=== PATIENT | female | born 1930 | race Caucasian/White ===

== ENCOUNTER 2019-05-06 06:51 | Inpatient (IN) ==
--- NOTE | 2019-05-06 07:15 | PROVIDER DOCUMENTATION ---
HPI-Musculoskeletal Pain/Inj - GENERAL Chief Complaint: Fall Stated Complaint: fall/dizzy Time Seen by Provider: 05/06/19 07:05 Source: patient - HX OF PRESENT ILLNESS-MUSKULOSKELTAL Quality of Pain: reports: aching, sharp Severity in ED: severe Onset/Duration: just prior to arrival Timing: still present Modifying Factors: improves with: movement Any recent injury?: Yes Locality of Occurance: Home Similar Symptoms Previously?: Yes (has fallen in the past) Recently seen or treated by another doctor?: No - FALL INJURY Location of Pain/Injury: reports: lower extremity (right hip) Pain Radiation: reports: no radiation Reason for Fall: reports: lost balance Symptoms prior to fall:: reports: none Injury Associated Symptoms: reports: denies symptoms - HIP/PELVIS PAIN/INJURY Hip Pain Location: reports: hip (R) Pain Radiation: reports: no radiation Context / Method of Injury: reports: fall Review of Systems - Adult - REVIEW OF SYSTEMS - ADULT Constitutional: reports: no symptoms reported Eyes: reports: no symptoms reported Ears, Nose, Mouth & Throat: reports: no symptoms reported Cardiovascular: reports: no symptoms reported Respiratory: reports: no symptoms reported Gastrointestinal: reports: no symptoms reported Genitourinary: reports: no symptoms reported Musculoskeletal: reports: see HPI Integumentary: reports: no symptoms reported Neurological: reports: no symptoms reported Psychiatric: reports: no symptoms reported Endocrine: reports: no symptoms reported Past History - Adult - PAST MEDICAL HISTORY-ADULT Review of Records: reports: Old Records Reviewed, Nursing Assessment Review Physical Exam-Injury Related - Physical Exam-Injury Related Initial Vital Signs Reviewed: Yes General Appearance: appears well, alert, no apparent distress Eyes: PERRL/EOMI, pink conjunctivae Head, Ears, Nose, Mouth & Throat: normocephalic/atraumatic, moist mucous membranes, normal ENT inspection, TMs normal, pharynx normal Neck: non-tender, full range of motion, supple, normal inspection Respiratory: chest non-tender, lungs clear, normal breath sounds, no pleuratic chest pain Cardiovascular: normal peripheral pulses, regular rate, rhythm, no edema, no gallop, no JVD, no murmur Chest/Breast: deferred Peripheral Pulses: dorsalis-pedis (R): 2+, dorsalis-pedis (L): 2+ Abdominal Exam: normal bowel sounds, non tender, soft, no organomegaly, no pulsatile mass Female Genitalia/Pelvic Exam: deferred Rectal Exam: deferred Back Exam: normal inspection, no CVA tenderness, no vertebral tenderness Extremity: pelvis stable Integumentary: normal color, warm/dry Neurologic: employee communications coordinator II-XII nml as tested - Glascow Coma Score Best Eye Response ([place]): (4) open spontaneously Best Verbal Response ([place]): (5) oriented Best Motor Response ([place]): (6) obeys commands [place] Total: 15 Progress - PLAN OF CARE/RESULTS Progress/Plan/Lab Results: Vital Signs - 8 hr 05/06/19 07:02 Temperature 98.9 F Pulse Rate 64 Respiratory Rate 18 Blood Pressure 177/98 O2 Sat by Pulse Oximetry 90 L Orders Category Date Time Status CHEST-1 VIEW [RAD] Stat Exams 05/06/19 08:25 Ordered FEMUR 1 VIEW RIGHT [RAD] Stat Exams 05/06/19 07:14 Completed XRAY HIP UNILATERAL RT [RAD] Stat Exams 05/06/19 07:50 Completed CBC WITH ELECTRONIC DIFF [HEME] Stat Lab 05/06/19 08:37 Ordered CK PROFILE [SP CHEM] Stat Lab 05/06/19 08:14 Ordered COMPREHENSIVE METABOLIC PANEL [CHEM] Stat Lab 05/06/19 08:14 Ordered Hydromorphone [Dilaudid] Med 05/06/19 07:56 Discontinued 1 mg IM NOW ONE Ondansetron [Zofran] Med 05/06/19 08:38 Discontinued 4 mg .ROUTE .STK-MED ONE EKG [EKG] Stat Ther 05/06/19 08:14 Ordered - EKG 1 Time of EKG reading by physician:: 08:34 EKG Read and Signed by:: Mumtaz Somers EKG Interpretation (*Must complete 3 of following elements*): Abnormal Rate: 53 Rhythm: junctional [place]: normal QRS: poor R wave progression (poss old septal infarct) ST Wave: normal - CONSULTS/PCP/HOSPITALIST Notification #1 *Consult/PCP/Hospitalist*: Dr. Reeves, Orthopedics Time Discussed: 08:22 (Admit to Hospitalist) #2 Consult: Rosangela Time Discussed: 08:33 (Admit to Dr Street) Departure - Departure Date of Disposition Decision: 05/06/19 Time of Disposition Decision: 08:39 DIAGNOSIS: Hip fracture, right Disposition: ADMITTED INPATIENT 09 Certified Medical Emergency: Emergent Condition: Stable Referrals and Follow-Ups: Mica Moreno CRNP [Primary Care Provider] - - Critical Care Note This patient required my direct & personal management of CC.: No Attestation - Physician/ ATIF Attestation Patient care was provided by Advanced Practice Provider:: No The physician spent face to face time with patient:: Yes Advanced Practice Provider documentation review:: Supervising physician onsite and consulted in the evaluation and care of this patient. The physician did have a face to face encounter with the patient.
[2019-05-06] MEDS ORDERED: DILAUDID IM ONE (07:56)
--- NOTE | 2019-05-06 07:59 | Diag Imaging Result Doc PS360 ---
EXAM: FEMUR 1 VIEW RIGHT 05/06/2019 HISTORY: fall/ hip pain TECHNIQUE: Two views COMMENT: There is a fracture of the femoral neck. There are lucencies in the femoral head which may be due to subchondral cysts. There is osteophyte formation laterally. There is degenerative change in the knee with joint space narrowing. IMPRESSION: Fracture of the femoral neck. Osteoarthritis. Electronically signed by Ken Uribe 05/06/2019 7:57 AM
--- NOTE | 2019-05-06 08:09 | Diag Imaging Result Doc PS360 ---
EXAM: XRAY HIP UNILATERAL RT 05/06/2019 HISTORY: hip pain TECHNIQUE: Right hip two views COMMENT: There is a subcapital femoral neck fracture as previously described. There are degenerative changes in the femoral head and lateral acetabulum. IMPRESSION: Femoral neck fracture. Osteoarthritis. Electronically signed by Ken Uribe 05/06/2019 8:06 AM
[2019-05-06] MEDS ORDERED: ZOFRAN ONE (08:38)
--- NOTE | 2019-05-06 08:49 | Diag Imaging Result Doc PS360 ---
EXAM: CHEST-1 VIEW 05/06/2019 HISTORY: hip fracture TECHNIQUE: AP portable semierect COMMENT: There is some obscuration of the left heart border laterally as well as the costophrenic angle. There are no previous studies. There has been sternotomy and anterior mediastinal surgical clips are present. IMPRESSION: Atelectasis versus fibrosis in the left costophrenic angle region. Postsurgical changes. Electronically signed by Ken Uribe 05/06/2019 8:47 AM
[2019-05-06 08:54] LABS: BASO# 0.01 X1000 (0.0-0.2); BASO% 0.1 % (0.0-0.8); EOS# 0.04 X1000 (0.0-0.7); EOS% 0.4 % (0.0-10.0); HEMATOCRIT 39.9 % (37.0-47.0); HEMOGLOBIN 13.4 g/dL (12.0-16.0); IMM GRAN# 0.02 X1000 (0.0-0.04); IMM GRAN% 0.2 % (0.0-0.5); LYMPH# 1.53 X1000 (1.2-3.4); LYMPH% 16.1 % (20.5-51.1); MCH 31.2 PG (27-31); MCHC 33.6 g/dL (33-37); MONO# 1.08 X1000 (0.11-0.59); MONO% 11.3 % (1.7-9.3); MPV 9.9 FL (7.4-10.4); NEUT# 6.85 X1000 (1.4-6.5); NEUT% 71.9 % (42.2-75.2); PLT 232 X1000 (130-400); RBC 4.29 XMIL (4.2-5.4); RDW 13.6 % (11.5-14.5); WBC 9.53 X1000 (4.8-10.8)
[2019-05-06 09:20] LABS: AGAP 13; ALB/GLOB RATIO 1.3; ALBUMIN 4.2 g/dL (3.5-5.0); ALKALINE PHOSPHATASE 39 U/L (32-104); BUN 13 mg/dL (8-22); CALCIUM 10.1 mg/dL (8.8-10.2); CHLORIDE 99 mmol/L (98-107); CK PROFILE 27 U/L (24-173); COSMO 283; CREATININE 0.5 mg/dL (0.5-0.9); ESTIMATED GFR > 60; GLUCOSE 188 mg/dL (70-104); GOT 17 U/L (10-30); GPT 13 U/L (10-36); POTASSIUM 4.1 mmol/L (3.5-5.1); SODIUM 139 mmol/L (136-145); TCO2 27 mmol/L (25-35); TOTAL BILIRUBIN 0.38 mg/dL (0.20-1.00); TOTAL PROTEIN 7.5 g/dL (6.3-8.3)
--- NOTE | 2019-05-06 09:25 | HISTORY AND PHYSICAL ---
PRIMARY CARE PROVIDER: DAWIT Rodney CHIEF COMPLAINT: I fell. HISTORY OF PRESENT ILLNESS: Ms. Rabago is an 88-year-old female who carries a past medical history of coronary artery disease status post CABG, hypertension, hyperlipidemia, thyroidectomy, diabetes mellitus orally controlled, right breast cancer status post right mastectomy, incontinence, kidney stones, and dry eyes. Also reports dizziness that has been ongoing for a long time that she does not take any medication for. She reports around 4 or 5 this morning in she got up, felt dizzy, lost her balance and fell. Her was unable to get her off the floor. EMS was called. She was unable to bear weight on her right side. Imaging in the ED revealed a right femoral neck fracture and osteoarthritis. She had low normal O2 with sat of 90. She was placed on supplemental O2. Laboratory data and chest x-ray are currently pending. We will admit her. Dr. Collado is aware. PAST MEDICAL HISTORY: 1. Dizziness. 2. Coronary artery disease. 3. Hyperlipidemia. 4. Hypertension. 5. Hypothyroidism. 6. Diabetes mellitus type 2. 7. Right breast cancer. 8. Bladder incontinence. 9. Kidney stones. 10. Dry eyes. PAST SURGICAL HISTORY: 1. Thyroidectomy with Iodine. 2. Right mastectomy. 3. Coronary artery bypass grafting. REVIEW OF SYSTEMS: Twelve-point review of systems complete and negative except for those mentioned in HPI. Denies any fever, chills, cough, headache, nausea, vomiting, diarrhea. No syncopal episode. The patient has a history of dizziness that has been ongoing for several years. SOCIAL HISTORY: She moved from [place] with her . They have only been here a few months. They have a daughter that lives in [place]. She is an ex-smoker, but quit in 1965. No alcohol or illicit drug use. FAMILY HISTORY: Noncontributory LABORATORY DATA/DIAGNOSTICS: Currently pending. Chest x-ray pending. Hip and femur x-ray on the right shows a right femoral neck fracture and osteoarthritis. ALLERGIES: Penicillin. HOME MEDICATIONS: Have not been verified. PHYSICAL EXAMINATION: VITAL SIGNS: Temperature is 98.9 degrees, heart rate 64, respirations 18, blood pressure is 177/98. Initial O2 saturation on room air was 90. She is now up to 96 on 2 L. GENERAL: Ms. Rabago is a pleasant 88-year-old female who is lying on the stretcher in no acute distress. Just received IM Dilaudid and was feeling a little loopy, but she was alert, oriented, and appropriate. Answered all questions. HEENT: Atraumatic, normocephalic. PERRL. NECK: Supple, trachea midline. CARDIOVASCULAR: S1, S2 appreciated. No murmurs, gallops, rubs noted. RESPIRATORY: Lung sounds clear bilaterally. GASTROINTESTINAL: Soft, nontender, nondistended. Positive bowel sounds 4 quads. EXTREMITIES: Negative for edema. Bilateral pedal pulses are pounding. No signs of clubbing or cyanosis. NEUROLOGIC: No focal deficits noted. ASSESSMENT AND PLAN: 1. Status post mechanical fall with a right femoral neck fracture. The patient will be admitted. Dr. Collado has been consulted. We will continue with pain regimen and await orthopedics recommendations. 3. Coronary artery disease status post coronary artery bypass grafting. No chest pain. 4. Hypertension. 5. Hyperlipidemia. 6. Hypothyroidism, status post thyroidectomy. 7. Diabetes mellitus. Will place on sliding scale and pattern blood sugars. 8. Right breast cancer status post right mastectomy. 9. Incontinence. 10. Kidney stones. 11. Further recommendation to follow physician evaluation, laboratory and diagnostic data. Dictated by DAWIT Dalton for Karthikeyan Street MD cc: Chavo Collado MD Agree with the above. the following is my own face to face assessment. heart: RRR. lungs: CTAB. monitor and await likely surgical repair of right femur fracture. [facility]
[2019-05-06] MEDS ORDERED: ZOFRAN IV PRN (10:26)
[2019-05-06] MEDS ORDERED: TYLENOL PO PRN (10:26)
[2019-05-06 12:29] LABS: BILIRUBIN URINE NEGATIVE (NEGATIVE); BLOOD URINE NEGATIVE (NEGATIVE); COLOR YELLOW; GLUCOSE URINE NEGATIVE (NEGATIVE); KETONE URINE NEGATIVE (NEGATIVE); LEUKOCYTES URINE LARGE (NEGATIVE); NITRITE URINE POSITIVE (NEGATIVE); PROTEIN URINE TRACE mg/dL (NEGATIVE); SP GRAVITY URINE 1.009; TURBIDITY URINE HAZY (CLEAR); UR EPITHELIAL CELLS <10 /HPF (<10); URINE BACTERIA 4+ /HPF; URINE RBC <10 /HPF (<10); URINE WBC TNTC /HPF (<10); UROBILINOGEN URINE NORMAL (NORMAL)
[2019-05-06 12:30] LABS: URINE SOURCE CLEAN CATCH
[2019-05-06] MEDS: NS 1,000 ML IV SCH (12:57)
[2019-05-06] MEDS: HUMALOG SUBQ SCH ×3 (13:03→21:08)
--- NOTE | 2019-05-06 13:56 | ORTHOPAEDICS CONSULTATION ---
DATE: 05/06/2019 CHIEF COMPLAINT: Fall. HISTORY OF PRESENT ILLNESS: Ms. Rabago is an 88-year-old female who presented to the hospital for right hip pain. She fell at home today. She says she got a little bit dizzy and lost her balance and fell. She had pain on the right hip and was unable to stand up or bear weight. EMS was called and brought her to the ER. She was found to have a hip fracture and orthopedics was consulted. PAST MEDICAL HISTORY: Coronary artery disease, hypertension, type 2 diabetes, breast cancer, kidney stones, bladder incontinence, hypothyroidism, hyperlipidemia. PAST SURGICAL HISTORY: Thyroidectomy with iodine, a right mastectomy, and coronary artery bypass grafting. SOCIAL HISTORY: She denies any alcohol use or tobacco use at this point. ALLERGIES: Penicillin. HOME MEDICATIONS: Per medical record. REVIEW OF SYSTEMS: Positive for right hip pain. All other systems are essentially negative. PHYSICAL EXAMINATION: General: A well-developed, elderly female who is in no acute distress. She is lying in bed. Head and Neck: Normocephalic, atraumatic. Respirations: She has nonlabored breathing. Cardiovascular: Regular pulse. Abdomen: Nondistended. Right Lower Extremity Examination: She has tenderness to palpation at the hip. Leg lengths look about equal. There are 2+ DP pulses. Good sensation to light touch to the toes. No skin ulcerations or abrasions seen. No tenderness to palpation of the left lower extremity or bilateral upper extremities. RADIOGRAPHS: Several views of the right hip and right femur were reviewed, which shows a femoral neck fracture with just a little bit of displacement. ASSESSMENT: Right displaced femoral neck fracture. PLAN: I discussed with Ms. Rabago about her x-rays. I also discussed with her about my recommendation for surgical intervention. I would recommend a right hip hemiarthroplasty at this point. I went over with her the procedure, risks, benefits, and potential complications. Risks include, but are not limited to infection, wound healing problems, damage to nerves, arteries, veins, numbness, malunion, numbness, hip dislocation, and fracture, DVT, and anesthesia related risks. After discussing these with the patient, she expressed understanding and wished to proceed. We will plan on getting everything set up for tomorrow. She is n.p.o. after midnight tonight. She may end up needing cardiology clearance given her history of heart conditions. cc: Chavo Collado MD
--- NOTE | 2019-05-06 14:25 | EKG Report ---
Test Performed on : 05/06/2019 08:32:39 AM Test Reason : hip fracture Blood Pressure : / mmHG Vent. Rate : 053 BPM Atrial Rate : 056 BPM P-R Int : 000 ms QRS Dur : 086 ms QT Int : 496 ms P-R-T Axes : 000 017 061 degrees QTc Int : 465 ms Junctional rhythm. Septal infarct , age undetermined Abnormal ECG No previous ECGs available Unconfirmed Result
[2019-05-06] MEDS: MORPHINE IV PRN ×2 (15:06→21:08)
[2019-05-07 06:36] LABS: BASO# 0.01 X1000 (0.0-0.2); BASO% 0.2 % (0.0-0.8); EOS# 0.18 X1000 (0.0-0.7); HEMATOCRIT 36.8 % (37.0-47.0); LYMPH# 1.19 X1000 (1.2-3.4); LYMPH% 19.7 % (20.5-51.1); MCH 31.3 PG (27-31); MCHC 32.6 g/dL (33-37); MCV 96.1 FL (81-99); MONO# 0.83 X1000 (0.11-0.59); MONO% 13.8 % (1.7-9.3); MPV 9.7 FL (7.4-10.4); NEUT# 3.82 X1000 (1.4-6.5); NEUT% 63.3 % (42.2-75.2); PLT 191 X1000 (130-400); RBC 3.83 XMIL (4.2-5.4); RDW 13.9 % (11.5-14.5); WBC 6.03 X1000 (4.8-10.8)
[2019-05-07 06:49] LABS: AGAP 10; BUN 15 mg/dL (8-22); CALCIUM 9.2 mg/dL (8.8-10.2); CHLORIDE 102 mmol/L (98-107); COSMO 281; CREATININE 0.7 mg/dL (0.5-0.9); ESTIMATED GFR > 60; GLUCOSE 140 mg/dL (70-104); MAGNESIUM 1.5 mg/dL (1.5-2.7); POTASSIUM 4.5 mmol/L (3.5-5.1); SODIUM 139 mmol/L (136-145); TCO2 27 mmol/L (25-35)
[2019-05-07 06:50] LABS: HEMOGLOBIN A1C 6.5 % (4.8-6.0)
[2019-05-07] MEDS: HUMALOG SUBQ SCH ×4 (07:01→22:15)
[2019-05-07] MEDS: MORPHINE IV PRN ×3 (07:26→22:36)
[2019-05-07] MEDS ORDERED: DIPRIVAN 1% ONE (09:04)
[2019-05-07] MEDS ORDERED: FENTANYL ONE (09:04)
[2019-05-07] MEDS ORDERED: XYLOCAINE-MPF 2% ONE (09:06)
[2019-05-07] MEDS: ROCEPHIN 1 GM in NS 50 ML IV SCH (09:55)
[2019-05-07] MEDS ORDERED: VERSED ONE (10:06)
[2019-05-07] MEDS ORDERED: EPHEDRINE ONE (10:08)
[2019-05-07] MEDS: NS 1,000 ML IV SCH (11:53)
[2019-05-07] MEDS: OXY IR PO PRN ×2 (12:32→19:02)
--- NOTE | 2019-05-07 13:32 | Diag Imaging Result Doc PS360 ---
EXAM: PELVIS INDICATION: s/p hip zoe TECHNIQUE: One view COMPARISON: 05/06/2019 FINDINGS: There has been a recent right hip arthroplasty. The arthroplasty hardware is in the expected position. There is no evidence of periprosthetic fracture. Skin amy are noted lateral to the right hip. IMPRESSION: Satisfactory postoperative hip. Electronically signed by Shane Magallon 05/07/2019 1:30 PM
--- NOTE | 2019-05-07 13:48 | OPERATIVE NOTE ---
PROCEDURE DATE: 05/07/2019 PREOPERATIVE DIAGNOSIS: Right femoral neck fracture. POSTOPERATIVE DIAGNOSIS: Right femoral neck fracture. PROCEDURE: Right hip hemiarthroplasty. SURGEON: Dr. Chavo Collado. MIDDLE SCHOOL PRINCIPAL: DAWIT Ruiz, who was integral to the case. She helped retract and exposed the whole time and she helped increase our OR efficiency greatly. ANESTHESIA: Spinal and light sedation. ESTIMATED BLOOD LOSS: About 100 mL. IMPLANTS: DePuy Corail stem size 10 and a 47 head. DISPOSITION: To PACU, hemodynamically stable. INDICATION FOR PROCEDURE: Ms. Rabago is an 88-year-old female who fell yesterday and fractured her right hip. She was admitted per the Hospitalist Service and cleared for surgical intervention. I discussed with her about operative intervention. She expressed understanding and wished to proceed. DESCRIPTION OF PROCEDURE: Ms. Rabago was identified in the preop holding area. The right hip was marked as correct surgical site. She was then wheeled to the operating room, kept supine on her own bed. She was then induced under spinal anesthesia. She was then moved to the OR table placed in the left lateral decubitus position. All bony prominences were checked and well padded. Right lower extremity then prepped with chlorhexidine, gluconate scrub and then ChloraPrep, and draped in normal sterile fashion. Surgical pause was performed. We identified the correct patient, correct side, and the correct procedure. Preop antibiotics were given. I started with a standard posterior approach to the hip. Dissection was carried down through the deep fascia to short external rotators. We tagged the piriformis for repair later. I then T'd the capsule and exposed the femoral neck fracture. I then made my cut on the neck and then removed the head. I got any bone fragments out of the acetabulum at that time. We irrigated everything copiously with normal saline. We then broached all the way up to a size 10 and the size 10 actually fit really well on her. We also trialed a 47 head and that actually fit well. We took it through a range of motion and she was extremely stable. At this point, we took out all the trial components, irrigated everything copiously with normal saline. I then put the regular components in, reduced her. Stability was great. I could flex rub, internally rotate her and she did not dislocate at all. I then repaired the capsule back repaired the piriformis and then 0 Vicryl for the deep layer, 2-0 Vicryl for the subcutaneous and amy on the skin. Adaptic, 4 x 4s,, island dressing was applied. She was awakened from light sedation, moved to her own bed and taken to the PACU in stable condition. PLAN: Postop she will be weight bear as tolerated right lower extremity. I will see her in the morning. cc: Chavo Collado MD
[2019-05-07] MEDS: KEFZOL 1 GM/D5W 1 GM/50 ML IVPB IV SCH ×2 (13:49→22:16)
--- NOTE | 2019-05-07 15:28 | PROGRESS NOTE ---
DATE: 05/07/2019 INTERVAL HISTORY: The patient is status post surgical repair of right femur fracture. Some pain postop, but reasonably controlled. No other complaints. No acute events overnight. LABORATORY: WBC 6.0, hemoglobin 12, hematocrit 36.8, and platelets 191,000. Glucose 119-202. A1c 6.5. TSH 1.0. Urinalysis with nitrite positive, large leukocytes too numerous to count WBCs. Urine culture gram-negative gabriela. Previous urine culture with Klebsiella resistant only to Macrobid and ampicillin. VITAL SIGNS: T-max 99, pulse 83, respirations 16, and blood pressure 151/59. O2 saturation 96% on 3 L by nasal cannula. PHYSICAL EXAMINATION: General: No acute distress. Vitals: As above. HEENT: Normocephalic, atraumatic. Moist mucous membranes. No cervical adenopathy. Cardiovascular: Regular rate and rhythm. No murmurs, rubs, or gallops. Pulmonary: Clear to auscultation bilaterally. No wheezing, rales, or rhonchi. Abdomen: Soft, nontender, and nondistended. Bowel sounds positive. Extremities: Peripheral pulses intact. No clubbing or cyanosis. Trace right lower edema. Right hip incision is bandaged. Neurologic: Cranial nerves grossly intact. No focal deficits identified. Psychiatric: Normal mood and affect. Awake, alert, and oriented x3. Skin: No new rashes or lesions identified. ASSESSMENT AND PLAN: 1. Right closed femoral neck fracture. Status post surgical repair by Dr. Collado who is following and managing. Likely, discharge to rehab versus home health on Tuesday. 2. CAD with previous CABG 9 to 10 years ago. No chest pain, dyspnea, or other symptoms. Restart aspirin once cleared by Orthopedics likely tomorrow. 3. Diabetes mellitus acceptable control on current regimen. A1c 6.5. Continue to monitor. 4. History of right breast cancer. No active cancer per patient. 5. Hypertension. Mild to moderate elevations. The patient is immediately postop. We will keep her off her medications today, but if blood pressure remains elevated. If the patient experiences no hypotension and kidney function remains stable, then we will likely restart some of her home medications in the morning. 6. Situational depression. Continue home Celexa. 7. Likely UTI. Patient with urinalysis strongly suggestive of UTI. Urine culture growing gram- negative rods. Previous urine culture with Klebsiella resistant only to ampicillin and Macrobid. We will start Rocephin and plan on a 5 day course pending sensitivities.
[2019-05-07] MEDS: PERIDEX MT SCH (22:15)
[2019-05-08] MEDS: OXY IR PO PRN ×4 (02:35→22:55)
[2019-05-08] MEDS: NS 1,000 ML IV SCH (02:35)
[2019-05-08] MEDS: KEFZOL 1 GM/D5W 1 GM/50 ML IVPB IV SCH (05:55)
[2019-05-08 06:08] LABS: HEMATOCRIT 32.3 % (37.0-47.0); HEMOGLOBIN 10.4 g/dL (12.0-16.0)
[2019-05-08] MEDS: MORPHINE IV PRN (06:29)
[2019-05-08] MEDS: HUMALOG SUBQ SCH ×4 (06:32→22:57)
[2019-05-08 06:36] LABS: AGAP 11; BUN 7 mg/dL (8-22); CALCIUM 8.9 mg/dL (8.8-10.2); CHLORIDE 100 mmol/L (98-107); COSMO 277; CREATININE 0.5 mg/dL (0.5-0.9); ESTIMATED GFR > 60; GLUCOSE 156 mg/dL (70-104); POTASSIUM 3.8 mmol/L (3.5-5.1); SODIUM 138 mmol/L (136-145); TCO2 27 mmol/L (25-35)
[2019-05-08] MEDS: ROCEPHIN 1 GM in NS 50 ML IV SCH (10:36)
[2019-05-08] MEDS: PERIDEX MT SCH ×2 (10:36→22:56)
--- NOTE | 2019-05-08 12:22 | ORTHOPAEDICS PROGRESS NOTE ---
DATE: 05/08/2019 SUBJECTIVE DATA: Ms. Rabago is lying comfortably in bed. She states she does feel some better. The hip is still giving her some pain. OBJECTIVE DATA: Right Lower Extremity Exam: Her incision is clean, dry, and intact. It is well approximated. There is no erythema or drainage. She has good sensation in the lower limb, is a little bit weak on that side. She is able to activate the quadriceps muscles. ASSESSMENT: Status post right hip hemiarthroplasty. PLAN: We do want Ms. Rabago getting up on this hip today. We want her working with physical therapy, being full weightbearing. I do want her out of bed for all meals. She will likely need a rehab placement. We will continue to follow her during her hospital stay. Dictated by DAWIT Ruiz for Chavo Collado MD cc: DAWIT Ruiz MD
--- NOTE | 2019-05-08 15:59 | PROGRESS NOTE ---
DATE: 05/08/2019 INTERVAL HISTORY: No acute events. The patient has been hypertensive, for which her antihypertensive medication has been started. The patient's is at bedside. She needed a good amount of support with physical therapy. She denies any chest pain, shortness of breath. She has not had any bowel movements. Her appetite is good. VITALS: Temperature 98.6 degrees, pulse 98, respiratory rate 16, blood pressure 175/60. She is saturating 98% on 3 L nasal cannula. PHYSICAL EXAMINATION: General: Does not appear in any acute distress. HEENT: Oral cavity is moist. Lungs: Air entry bilaterally equal. No wheeze, rhonchi, crackles. Cardiovascular: S1, S2 normal. No murmur, rub, or gallop. Abdomen: Distended, soft, nontender. Extremity: She does not have any lower extremity edema. She has adductor block between 2 legs and urine catheter. She has tenderness on the right hip joint flexion extension. No tenderness on the left side. LABS: Suggestive of hemoglobin of 10.4. Her electrolytes are within normal limits. Urine culture had Klebsiella pneumoniae, which is sensitive to cefazolin. ASSESSMENT AND PLAN: 1. Mechanical fall leading to closed right femoral neck fracture, status post right hip hemiarthroplasty on 05/07/2019. Continue pain management with oxycodone and morphine. Start the patient on MiraLAX to avoid constipation. Continue weightbearing as tolerated as per Orthopedic Surgery recommendation. She lives with her and would benefit from going to the rehab. Social Work Rehab consult has been placed. 2. Essential hypertension. Resume her home amlodipine and metoprolol. I will add losartan as tolerated. 3. Klebsiella pneumoniae urinary tract infection. Continue intravenous ceftriaxone, which I will change to oral Keflex for about 5 days of treatment. 4. Disposition. Social Work Rehab consult has been placed. Plan of care discussed with the patient and her at bedside. 5. History of coronary artery disease status post CABG 10 years ago. Resume home aspirin. cc: Kike Owen MD
[2019-05-08] MEDS: TUMS PO SCH ×2 (16:43→22:55)
[2019-05-08] MEDS: GLUCOPHAGE XR PO SCH (16:43)
[2019-05-08] MEDS: MIRALAX PO SCH (16:59)
[2019-05-08] MEDS: NORVASC PO SCH (16:59)
[2019-05-08] MEDS: TOPROL XL PO SCH (16:59)
[2019-05-08] MEDS: KEFLEX PO SCH (22:55)
[2019-05-09] MEDS: ORAJEL MAXIMUM ST 20% GEL TOP PRN ×2 (05:25→23:45)
[2019-05-09] MEDS: OXY IR PO PRN (05:26)
[2019-05-09] MEDS: KEFLEX PO SCH ×4 (05:26→23:39)
[2019-05-09 06:34] LABS: HEMATOCRIT 31.9 % (37.0-47.0); HEMOGLOBIN 10.5 g/dL (12.0-16.0)
[2019-05-09 06:47] LABS: AGAP 11; BUN 8 mg/dL (8-22); CALCIUM 9.4 mg/dL (8.8-10.2); CHLORIDE 96 mmol/L (98-107); COSMO 268; CREATININE 0.5 mg/dL (0.5-0.9); ESTIMATED GFR > 60; GLUCOSE 129 mg/dL (70-104); POTASSIUM 3.5 mmol/L (3.5-5.1); SODIUM 134 mmol/L (136-145); TCO2 27 mmol/L (25-35)
[2019-05-09] MEDS: HUMALOG SUBQ SCH ×2 (06:53→11:58)
--- NOTE | 2019-05-09 07:00 | ORTHOPAEDICS PROGRESS NOTE ---
DATE: 05/09/2019 SUBJECTIVE: Ms. Rabago was resting in bed, well this morning. Not really complaining of a lot of pain. OBJECTIVE: Right Lower Extremity Examination: Incision is clean, dry, and intact. She is neurovascularly intact to the right lower extremity. ASSESSMENT: Status post right hip hemiarthroplasty. PLAN: I discussed with Ms. Rabago about getting up and out of bed. We want her up for all meals. She can be weightbearing as tolerated to the right lower extremity. Physical therapy needs to work with getting her out of bed and walking today. We will continue to follow. She will more than likely go to rehab from the hospital. cc: Chavo Collado MD
[2019-05-09] MEDS: ASPIRIN PO SCH (08:58)
[2019-05-09] MEDS: TUMS PO SCH ×2 (08:58→23:39)
[2019-05-09] MEDS: NORVASC PO SCH (08:58)
[2019-05-09] MEDS: GLUCOPHAGE XR PO SCH ×2 (08:58→17:54)
[2019-05-09] MEDS: TOPROL XL PO SCH (08:59)
[2019-05-09] MEDS: MIRALAX PO SCH ×2 (08:59→09:01)
[2019-05-09] MEDS ORDERED: TYLENOL PO PRN (13:36)
[2019-05-09] MEDS ORDERED: OXY IR PO PRN (13:36)
--- NOTE | 2019-05-09 13:53 | PROGRESS NOTE ---
DATE: 05/09/2019 INTERVAL HISTORY: No acute events. The patient states that she had a bowel movement though it is not documented. She is denying any new complaints. She states she was able to stand up. However, physical therapy states that she needed maximal assist. She denies any chest pain or shortness of breath. VITAL SIGNS: Temperature 98.7 degrees, pulse 72, respiratory 20, blood pressure 128/44, and saturating 100% on 3 L nasal cannula. PHYSICAL EXAMINATION: General: Does not appear in any acute distress. HEENT: Oral cavity is moist. Lungs: Air entry bilaterally equal. No wheeze, rhonchi, or crackles. Cardiovascular: S1, S2 normal. No murmur or gallop. Abdomen: Soft, nontender. Extremities: No lower extremity edema. She is able to raise left lower extremity above ground level. Right lower extremity, she is able to flex and extend at the knee joint and at the ankle joint. LABORATORY: Hemoglobin of 10.5. Essentially normal electrolytes. MICROBIOLOGY: Urine culture had Klebsiella pneumoniae. Otherwise, no data. The patient has been refusing insulin so I will stop the insulin saying that she did not take insulin. She only wants to take her metformin. ASSESSMENT AND PLAN: 1. Mechanical fall leading to closed right femoral neck fracture status post right hip hemiarthroplasty on 05/07. Continue pain management with oxycodone, and I will stop the intravenous pain medications. Continue MiraLAX and senna to avoid constipation. She is weightbearing as tolerated. 2. Essential hypertension. Continue home amlodipine and metoprolol, which is controlling her blood pressure well. 3. Klebsiella pneumoniae UTI. Continue oral Keflex. 4. Disposition: Apparently, patient and I had extensively discussed the patient with the patient and her yesterday about need for rehab, and they had agreed. Today, I have been informed that they were still asking about home physical therapy. I will again go and try and explain to them about need for rehab considering she is [id number], and she had a hemiarthroplasty, she is needing a lot of help and she lives with her so she is at high risk of falling down. Rehab is something that I would strongly recommend. cc: Kike Owen MD
[2019-05-10] MEDS: KEFLEX PO SCH ×4 (04:43→20:47)
[2019-05-10 06:18] LABS: HEMATOCRIT 30.6 % (37.0-47.0); HEMOGLOBIN 10.2 g/dL (12.0-16.0)
[2019-05-10] MEDS ORDERED: DULCOLAX PR ONE (09:15)
[2019-05-10] MEDS: TUMS PO SCH ×2 (09:27→20:48)
[2019-05-10] MEDS: ASPIRIN PO SCH (09:27)
[2019-05-10] MEDS: MIRALAX PO SCH (09:28)
[2019-05-10] MEDS: TOPROL XL PO SCH (09:28)
[2019-05-10] MEDS: GLUCOPHAGE XR PO SCH ×2 (09:28→16:46)
[2019-05-10] MEDS: NORVASC PO SCH (09:28)
--- NOTE | 2019-05-10 14:07 | PROGRESS NOTE ---
DATE: 05/10/2019 INTERVAL HISTORY: No acute events overnight. The patient had a bowel movement after getting a suppository. Denies any complaints. She was able to come out, sit on the bed. The patient and family had agreed to go to rehab. The surgery is in place. VITALS: Temperature 98.4 degrees, pulse 77, respiratory 24, blood pressure 132/49, and saturating 97% on 1 L nasal cannula. PHYSICAL EXAMINATION: General: Does not appear in acute distress. HEENT: Oral cavity is moist. Lungs: Air entry bilaterally equal. No wheeze or rhonchi. She does have mild crackles bilateral infrascapular regions. Heart: S1, S2 normal. No murmur or gallop. Abdomen: Soft, nontender. Extremities: No lower extremity edema. She has right-sided lateral thigh amy incision which is healing well. There is no bloody discharge or pus that I could see except a spot of blood on the dressing. She is able to raise both lower extremities above ground level. LABORATORY: Hemoglobin of 10.2, hematocrit of 30. Blood sugar is 132. She refused insulin before. ASSESSMENT AND PLAN: 1. Mechanical fall leading to closed right femoral neck fracture status post right hip hemiarthroplasty on 05/07. 2. Essential hypertension. 3. Klebsiella pneumoniae UTI. PLAN: 1. Continue bowel regimen. Continue pain medication for hip fracture and physical therapy for ambulation. Continue metoprolol for essential hypertension, metformin for diabetes. As soon as we have a bed and insurance approval, plan is to discharge her to rehab. Plan of care discussed with the patient. Her questions were answered. cc: Kike Owen MD
--- NOTE | 2019-05-10 18:12 | ORTHOPAEDICS PROGRESS NOTE ---
DATE: 05/10/2019 SUBJECTIVE: Ms. Rabago is lying in bed this morning. Her is there. She is actually doing pretty well overall. Pain is controlled. She has been getting up. She actually has already gotten up with therapy today and took a few steps. OBJECTIVE: Right lower extremity: Dressing is clean, dry, and intact. She remains neurovascularly intact to right lower extremity. ASSESSMENT: Status post right hip hemiarthroplasty for femoral neck fracture. PLAN: Ms. Rabago is going to be weight bear as tolerated to right lower extremity. Telephone Quotation Clerk is involved to get everything set up for rehab. We will continue to follow while she is in the hospital. cc: Chavo Collado MD
--- NOTE | 2019-05-10 20:21 | ORTHOPAEDICS PROGRESS NOTE ---
DATE: 05/10/2019 SUBJECTIVE DATA: Ms. Rabago is sitting comfortably in bed. Her son is at the bedside. She says she is doing okay. She is still getting some pain. OBJECTIVE DATA: On right lower extremity exam, her incision is clean, dry, and intact. There is no erythema or drainage. She is neurovascular intact to the right lower extremity. ASSESSMENT: Status post right hip hemiarthroplasty. PLAN: Ms. Rabago is doing well. I really want her getting up and mobilized a little bit more. She said she worked with PT for a little bit. We do want her up for all meals. She can be full weightbearing on this right side. It sounds like the plan is for her to go to rehab. We are in agreement with this. Will want to follow up with her in 10 to 14 days in the office once she is discharged. Dictated by DAWIT Ruiz for Chavo Collado MD cc: DAWIT Ruiz MD
[2019-05-11] MEDS: KEFLEX PO SCH ×3 (03:43→09:01)
[2019-05-11] MEDS: NORVASC PO SCH (08:52)
[2019-05-11] MEDS: MIRALAX PO SCH (08:52)
[2019-05-11] MEDS: ASPIRIN PO SCH (08:53)
[2019-05-11] MEDS: TUMS PO SCH (08:53)
[2019-05-11] MEDS: GLUCOPHAGE XR PO SCH (08:53)
[2019-05-11] MEDS: TOPROL XL PO SCH (08:53)
[2019-05-11 11:33] VITALS: BP 127/50
[2019-05-11] MEDS ORDERED: LOVENOX SUBQ SCH (11:45)
--- NOTE | 2019-05-11 12:41 | DISCHARGE SUMMARY ---
ADMISSION DATE: 05/06/2019 DISCHARGE DATE: 05/11/2019 DISCHARGE DISPOSITION: Rehab. DISCHARGE CONDITION: Hemodynamically stable. Alert, oriented. Denies any chest pain, cough, or shortness of breath. She is able to come out of bed to take a few steps with the help of physical therapy. DISCHARGE DIAGNOSES: 1. Mechanical fall. 2. Right femoral neck fracture requiring right hip hemiarthroplasty. 3. Diabetes mellitus type 2, non-insulin dependent with hyperglycemia. 4. Klebsiella pneumoniae urinary tract infection. OTHER DIAGNOSES: 1. History of coronary artery disease status post CABG. 2. Essential hypertension. 3. Hyperlipidemia. 4. Hypothyroidism. 5. Diabetes mellitus type 2. 6. Right breast cancer status post mastectomy. 7. History of nephrolithiasis. DISCHARGE MEDICATIONS: Azelastine nasal spray 2 sprays intranasally, citalopram 20 mg daily, losartan 50 mg daily, metformin 500 mg b.i.d. extended release, amlodipine 5 mg daily, metoprolol succinate extended release 50 mg daily, Keflex 250 mg every 6 hours for 3 days for UTI, MiraLAX 17 g b.i.d., calcium carbonate 500 mg b.i.d. for dyspepsia, acetaminophen 650 mg every 6 hours as needed for hip surgery site pain. Xarelto 10 mg p.o. daily for 30 days for DVT prophylaxis. VITALS: At the time of discharge, temperature 97.6 degrees, pulse 68, respiratory 20, blood pressure 127/50, saturating 94% on room air. PHYSICAL EXAMINATION: General: Does not appear in acute distress. Oral cavity is moist. Air entry bilaterally equal. No wheeze or crackles. S1 normal. No murmur or gallop. Abdomen: Soft, nontender. Extremity: No lower extremity edema. She has a right lateral thigh about 15 cm incision with amy on without any oozing or bleeding. SIGNIFICANT LABS: At the time of discharge, hemoglobin 12.2, platelet count was 191,000. Blood sugar 227, BUN 8, creatinine 0.5, significant micro during examination. During hospital admission, Klebsiella pneumoniae was growing in urine culture. ASSESSMENT AND PLAN: Ms. Rabago is an 88-year-old lady who came in on the day of presentation because of mechanical fall. Apparently, she got up, felt dizzy, lost her balance, and fell. Her was unable to get her off the floor so EMS was called. She was not able to bear weight on right lower extremity. 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 She was admitted for further management. Next, an orthopedic team was consulted and the patient underwent right hip hemiarthroplasty on 05/07/2019, which she tolerated well. Her postoperative course was largely unremarkable except Klebsiella pneumoniae UTI for which she was getting cephalosporin and it was changed to oral cephalexin, which the organism was sensitive to. At the time of discharge, she was provided detailed discharge instructions including engaging in physical activity, blood thinner for DVT prophylaxis, and taking antibiotics. All of her questions were answered. More than 30 minutes spent in discharging this patient. cc: Kike Owen MD MTDD
[2019-05-12] MEDS ORDERED: XARELTO PO SCH (06:00)
== END 2019-05-11 14:00 | DRG 470 ==
LOC: SUPCPDRO → ED 06:51 → SUATTDRO 10:08 → 4N 10:08
PROVIDERS: ATTEND Internal Medicine
CPT/HCPCS: 36415; 71010; 71045; 72170; 73502; 73551; 80048; 80053; 80061; 81001; 82306; 82550; 82948; 83036; 83735; 84439; 84443; 85014; 85018; 85025; 87077; 87088; 87186; 88305; 88311; 93005; 94761; 94799; 96374; 97110; 97116; 97162; 97530; 99285; A9270; J0690; J0696; J1170; J1650; J1815; J2250; J2270; J2405; J3010; J7030; XXXXX